=== PATIENT | male | born 1940 | race Caucasian/White ===

== ENCOUNTER 2019-10-19 16:31 | Emergency (ER) | payer MEDICARE, BC ==
--- NOTE | 2019-10-19 17:56 | CT ---
CT OF THE BRAIN WITHOUT CONTRAST: 10/19/19 INDICATION: History of mechanical fall with head injury. COMPARISON: None. FINDINGS: There is moderate chronic small vessel white matter ischemic change. No acute infarct, hemorrhage, or hydrocephalus is present. Skull and extracranial soft tissues reveal no acute injury. There is a muc ous retention cyst within the left maxillary sinus. IMPRESSION: No acute intracranial abnormality. POS: BH
--- NOTE | 2019-10-19 18:11 | CT ---
CT OF THE CERVICAL SPINE WITHOUT CONTRAST: 10/19/19 INDICATION: History of fall with neck injury. COMPARISON: None. FINDINGS: No acute fracture or subluxation is evident. Spinal alignment is preserved. 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 There is some intradiscal gas seen at C6-7 and C7-T1 which may be indicative of some disc instab ility. There is multilevel facet osteoarthritic change. Craniocervical junction appears within normal limits. Mastoid air cells are clear. The visualized aspects of the mandibular heads are within eri l limits. Lung apices are clear. There is a small azygos lobe incidentally noted. IMPRESSION: 1. No acute fracture or subluxation. 2. Multilevel severe cervical spondylosis. POS: BH
== END 2019-10-19 17:48 | disposition home or self-care (01) ==
LOC: ERS 16:31
DX: S16.1XXA Strain of muscle, fascia and tendon at neck level, initial encounter (principal); S09.90XA Unspecified injury of head, initial encounter; W01.198A Fall on same level from slipping, tripping and stumbling with subsequent striking against other object, initial encounter
CPT/HCPCS: 70450; 72125

== ENCOUNTER 2020-07-11 19:30 | Outpatient (CLI) | payer MEDICARE | END 2020-07-11 19:31 | disposition home or self-care (01) | LOC: SLEEPLAB 19:30 | PROVIDERS: ATTEND Physician Assistant | DX: G47.33 Obstructive sleep apnea (adult) (pediatric) (principal); I10 Essential (primary) hypertension; E66.9 Obesity, unspecified | CPT/HCPCS: 95810 ==